=== PATIENT | female | born 1985 | race Caucasian/White ===

== ENCOUNTER 2018-08-28 08:00 | Inpatient (IN) | payer OTHER ==
[2018-09-28] MEDS ORDERED: ELECTROLYTE-148 SOLN 500 ML IV ONE (06:15)
[2018-09-28] MEDS ORDERED: CITRIC ACID/SODIUM CITRATE 30 ML UNIT-DOSE CUP PO ONE (06:15)
[2018-09-28] MEDS ORDERED: ELECTROLYTE-148 SOLN 1,000 ML IV SCH ×3 (06:30→07:30)
--- NOTE | 2018-09-28 07:05 | HP ---
Past Medical History - Admission Chief Complaint: Scheduled RLTCS History of Present Illness: 33yo @ 39wks here for scheduled RLTCS No VB/LOF. No ctx. 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: Alzheimer's, CVA, Dementia, Migraine, Multiple Sclerosis, Peripheral Neuropathy, Parkinson's, Seizure, Syncope, TIA, Vertigo, Other Cardiovascular: No: AFIB, Aneurysm, Aortic Insufficiency, Aortic Stenosis, CAD, CHF, Deep Vein Thrombosis, HTN, Hyperlipdemia, [place], Mitral Insufficiency, Mitral Stenosis, Murmur, Pulmonary Hypertension, Other Pulmonary: No: Asthma, Bronchitis, Cancer, COPD, O2 Dependent, Pneumonia, Previously Intubated, Pulmonary Embolus, Pulmonary Fibrosis, Sleep Apnea, Other Gastrointestinal: No: Ascites, Cancer, Constipation, Crohn's Disease, Diverticulitis, Diverticulosis, Esophageal Varices, Gastritis, GERD, GI Bleed, Hemorrhoids, Hiatal Hernia, Inflamatory Bowel Disease, Irritable Bowel Disease, Pancreatitis, Peptic Ulcer Disease, Ulcerative Colitis, Other Hepatobiliary: No: Cirrhosis, Cholelithiasis, Cholecystitis, Choledocholithiasis , Hepatitis A, Hepatitis B, Hepatitis C, Other Renal/: No: Renal Failure, Renal Inusuff, BPH, Cancer, Hematuria, Hemodialysis , Neurogenic Bladder, Renal Calculi, UTI, Other Reproductive: No: Ectopic , Endometriosis, Fibroids, PID, Polycystic Ovary Syndrome, Postmenopausal, Other ...EDC by Dates: 10/05/18 Heme/Onc: No: Anemia, B12 Deficiency, Bleeding Disorder, Cancer, Current Chemotherapy, Current Radiation Therapy, Hemochromatosis, Hypercoaguable State, Myeloproliferative Synd, Sickle Cell Disease, Sickle Cell Trait, Thrombocytopenia, Other Infectious Disease: No: AIDS, C-Diff, Herpes Zoster, HIV, MRSA, STD's, Tuberculosis, VREF, Other Psych: No: Addictions, Anxiety, Bipolar, Depression, Panic, Psychosis, Schizophrenia, Other - Past Surgical History Past Surgical History: Yes: Hx Myomectomy: No Hx Transabdominal Cerclage: No - Alcohol/Substance Use Hx Alcohol Use: No History of Substance Use: reports: None - Social History Usual Living Arrangement: Yes: With Spouse ADL: Independent History of Recent Travel: No Home Medications - Allergies Allergies/Adverse Reactions: Allergies Allergy/AdvReac Type Severity Reaction Status Date / Time No Known Allergies Allergy Verified 09/28/18 06:55 - Home Medications Home Medications: Ambulatory Orders Pnv 29-1 Tablet 1 tab PO DAILY 09/28/18 Physical Exam - Maternity Constitutional: Yes: Well Nourished, No Distress, Calm Eyes: Yes: WNL, Conjunctiva Clear, EOM Intact HENT: Yes: WNL, Atraumatic, Normocephalic Neck: Yes: WNL, Supple, Trachea Midline Cardiovascular: Yes: WNL, Regular Rate and Rhythm Breast(s): Yes: WNL - Abdominal Exam/OB Number of Fetuses: Single Presentation: Vertex Contractions: No Monitor Mode: External Category: I Assessment/Plan 33yo @ 39wks here for scheduled RLTCS Admit to L&D NPO, IVFs Ancef Longoria SCDs Risk of procedure reviewed, including bleeding/infection/injury (adnexa, bowel, bladder, vessels, nerves). All questions answered. Consent signed. Jack Robin MD
[2018-09-28 07:13] VITALS: BMI 27.5
[2018-09-28] MEDS ORDERED: OXYTOCIN 20 UNITS in 0.9% NS 20 UNIT/1,000 ML INFUS.BAG IV ONE (07:45)
[2018-09-28] MEDS ORDERED: morphine SULFATE/PF 0.5 MG/ML (2cc Syringe - QUVA) ONE (07:54)
[2018-09-28] MEDS ORDERED: ceFAZolin SODIUM 1 GM VIAL ONE (08:12)
[2018-09-28] MEDS ORDERED: PHENYLEPHRINE HCL 10 MG/1 ML SINGLE DOSE VIAL ONE (08:19)
[2018-09-28] MEDS: OXYTOCIN 20 UNITS in 0.9% NS 20 UNIT/1,000 ML INFUS.BAG IV SCH ×2 (08:24→19:28)
[2018-09-28] MEDS ORDERED: METHYLERGONOVINE MALEATE 0.2 MG/1 ML AMP IM PRN (09:00)
[2018-09-28] MEDS ORDERED: SENNOSIDES/DOCUSATE COMBO (SENNA PLUS) TABLET (UD) PO PRN (09:00)
[2018-09-28] MEDS ORDERED: IBUPROFEN 800 MG/8 ML IJ IVPB PRN (09:00)
--- NOTE | 2018-09-28 09:00 | OP ---
Operative Note - Note: Operative Date: 09/28/18 Pre-Operative Diagnosis: 39 week , 2 prior C/S, desires permanent sterilization Operation: Repeat , Bilateral Tubal Ligation Findings: VFI, MARIA L position, no nuchal, no meconium, Apgars 9/9. Weight pending. Normal tubes and ovaries bilaterally Surgeon: Salome Robin Bin Tripper Operator: Vikas Rodriguez Anesthesia: Spinal Specimens Removed: Bilateral Fallopian tube segments Estimated Blood Loss (mls): 600 Drains, Volume Out (mls): 200 (clear urine) Operative Report Dictated: Yes
[2018-09-28] MEDS ORDERED: ONDANSETRON 4 MG/2 ML VIAL IVPUSH PRN (09:09)
[2018-09-28] MEDS: FERROUS SO4 325 MG TABLET (FP) PO SCH ×2 (11:00→21:06)
[2018-09-28] MEDS: PRENATAL VITAMINS W/ FOLIC ACID TABLET (FP) PO SCH (11:00)
[2018-09-29] MEDS: ACETAMINOPHEN 325 MG TABLET (FP) PO PRN ×4 (00:36→20:43)
[2018-09-29] MEDS: IBUPROFEN 600 MG TABLET (FP) PO PRN ×4 (00:37→20:44)
[2018-09-29] MEDS: OXYTOCIN 20 UNITS in 0.9% NS 20 UNIT/1,000 ML INFUS.BAG IV SCH ×2 (02:16→11:43)
--- NOTE | 2018-09-29 07:31 | PN ---
Post Progress Note - Subjective Subjective: Patient is doing well, ambulating, tolerating PO, lochia decreased, bottle feeding Type of Delivery: Repeat C/S Vital Signs: Vital Signs Temperature 98.2 F 09/29/18 06:00 Pulse Rate 62 09/29/18 06:00 Respiratory Rate 18 09/29/18 06:00 Blood Pressure 97/52 L 09/29/18 06:00 O2 Sat by Pulse Oximetry (%) 100 09/28/18 09:50 Breast Exam: Yes: Other (deferred) Uterus: Yes: Fundus Firm Incision: Yes: Sutures intact Abdomen/GI: Yes: Abdomen soft Lochia, amount: Small Extremities: Yes: Calves non-tender Activity: Ambulating - Labs Labs: pending Problem List - Problems (1) Code(s): Z34.90 - ENCNTR FOR SUPRVSN OF NORMAL , UNSP, UNSP TRIMESTER Assessment/Plan POD # 1 in stable condition -Continue PP care
[2018-09-29 07:35] LABS: BASO % 0.1 % (0-2.0); EOS % 0.1 % (0-4.5); HEMOGLOBIN 9.9 GM/dL (10.7-15.3); LYMPH % 10.1 % (8-40); MCH 30.2 pg (25.7-33.7); MCHC 34.1 g/dl (32.0-36.0); MEAN CELL VOLUME 88.5 fl (80-96); MEAN PLT VOLUME 8.4 fl (7.5-11.1); MONO % 5.6 % (3.8-10.2); NEUT % 84.1 % (42.8-82.8); PLATELET COUNT 157 K/MM3 (134-434); RBC 3.28 M/mm3 (3.60-5.2); RDW 14.1 % (11.6-15.6); WHITE BLOOD COUNT 12.6 K/mm3 (4.0-10.0)
[2018-09-29] MEDS ORDERED: BISACODYL 10 MG SUPP.RECT RC PRN (09:00)
[2018-09-29] MEDS: SIMETHICONE 80 MG TAB.CHEW (FP) PO PRN ×2 (09:03→15:15)
[2018-09-29] MEDS: PRENATAL VITAMINS W/ FOLIC ACID TABLET (FP) PO SCH (10:00)
[2018-09-29] MEDS: FERROUS SO4 325 MG TABLET (FP) PO SCH ×2 (10:00→21:10)
--- NOTE | 2018-09-29 11:37 | PN ---
Progress Note (short form) - Note Progress Note: Anesthesia postop note 33 y/o F s/p spinal anesthesia/duramorph for section POD#1, vss, aaox3, pain well controlled, sensory motor intact distally No anesthesia complications.
[2018-09-30] MEDS: IBUPROFEN 600 MG TABLET (FP) PO PRN ×3 (07:26→22:30)
[2018-09-30] MEDS: SIMETHICONE 80 MG TAB.CHEW (FP) PO PRN ×2 (07:26→14:16)
[2018-09-30] MEDS: ACETAMINOPHEN 325 MG TABLET (FP) PO PRN ×3 (07:26→22:31)
--- NOTE | 2018-09-30 07:47 | PN ---
Post Progress Note - Subjective Subjective: c/o pain scale5/10 passing flatus bm done voiding without difficulty Post Day: 2 Type of Delivery: Repeat C/S Vital Signs: Vital Signs Temperature 98.7 F 09/29/18 21:39 Pulse Rate 67 09/29/18 21:39 Respiratory Rate 18 09/29/18 21:39 Blood Pressure 108/61 09/29/18 21:39 O2 Sat by Pulse Oximetry (%) 100 09/28/18 09:50 Breast Exam: Yes: Soft, Other (BF & bottle F). No: Engorged Uterus: Yes: Fundus Firm, Fundus below umbilicus, Non-tender Incision: Yes: Sutures intact (sterstrips in situ ). No: Redness, Oozing Abdomen/GI: Yes: Abdomen soft, Passing flatus, Tolerating PO (diet). No: Abdominal Distention, Tender Lochia: Yes: Rubra Lochia, amount: Moderate Extremities: Yes: Calves non-tender Perineum: Yes: Intact Activity: Ambulating - Labs Labs: CBC WBC 12.6 K/mm3 (4.0-10.0) H 09/29/18 07:19 RBC 3.28 M/mm3 (3.60-5.2) L 09/29/18 07:19 Hgb 9.9 GM/dL (10.7-15.3) L 09/29/18 07:19 Hct 29.0 % (32.4-45.2) L 09/29/18 07:19 MCV 88.5 fl (80-96) 09/29/18 07:19 MCH 30.2 pg (25.7-33.7) 09/29/18 07:19 MCHC 34.1 g/dl (32.0-36.0) 09/29/18 07:19 RDW 14.1 % (11.6-15.6) 09/29/18 07:19 Plt Count 157 K/MM3 (134-434) 09/29/18 07:19 MPV 8.4 fl (7.5-11.1) 09/29/18 07:19 Absolute Neuts (auto) 10.6 K/mm3 (1.5-8.0) H 09/29/18 07:19 Neutrophils % 84.1 % (42.8-82.8) H 09/29/18 07:19 Lymphocytes % 10.1 % (8-40) D 09/29/18 07:19 Monocytes % 5.6 % (3.8-10.2) 09/29/18 07:19 Eosinophils % 0.1 % (0-4.5) D 09/29/18 07:19 Basophils % 0.1 % (0-2.0) 09/29/18 07:19 Nucleated RBC % 0 % (0-0) 09/29/18 07:19 Problem List - Problems (1) examination following delivery Code(s): Z39.2 - ENCOUNTER FOR ROUTINE FOLLOW-UP Assessment/Plan s/p rc/s btl day #[address] ambulation, po fluids, deep breathing pt requests for discharge tomorrow
[2018-09-30] MEDS: FERROUS SO4 325 MG TABLET (FP) PO SCH ×2 (09:16→22:20)
[2018-09-30] MEDS: PRENATAL VITAMINS W/ FOLIC ACID TABLET (FP) PO SCH (09:16)
--- NOTE | 2018-09-30 18:13 | OP ---
DATE OF OPERATION: 09/28/2018 PREOPERATIVE DIAGNOSIS: A 39-week , 2 prior sections, desires permanent sterilization. POSTOPERATIVE DIAGNOSIS: A 39-week , 2 prior sections, desires permanent sterilization. PROCEDURE: Repeat section, bilateral tubal ligation. FINDINGS: Viable female infant, MARIA L position, no nuchal, no meconium. Apgars 9 and 9. Weight pending at time of delivery. Normal tubes and ovaries bilaterally. SURGEON: Salome Robin M.D. NICKEL OPERATOR: Tyrese Castillo ANESTHESIA: Spinal INTRAVENOUS FLUIDS: Per anesthesia record ESTIMATED BLOOD LOSS: 600 URINE OUTPUT: 200 clear urine at the end of the procedure DESCRIPTION OF PROCEDURE: After appropriate consents were signed, patient was taken to the operating room. Spinal anesthesia was administered. She was placed in the supine position. The abdomen was prepped and draped in the normal sterile fashion. A sterile Longoria catheter had been inserted prior to entry into the operating room. Timeout was performed confirming correct patient and procedure. A Pfannenstiel skin incision was made through the prior incision and carried through to the underlying layers until the fascia was nicked in the midline. Fascia was then extended laterally with the Adan scissors. The inferior aspect of the fascia was grasped with the Timo clamps, tented upwards, and the rectus muscles dissected off bluntly and with the Adan scissors. Attention was then paid to the superior aspect which was taken down in a similar fashion. The rectus muscles were then bluntly in the midline. The peritoneum was entered sharply. Bladder blade was inserted. Patient's lower uterine segment was noted to have roughly 3-4 cm uterine window. Lower uterine segment was incised in a low transverse fashion with a scalpel. Clear amniotic fluid was noted. The head was delivered without difficulty after the remaining shoulders and body. The cord was clamped and cut, the was handed off to the pediatric staff. The placenta was removed manually. The uterus was cleared all clot and debris. The uterus was exteriorized and closed in a single vertically imbricating layer with a 1-0 Vicryl with good hemostasis. Attention was then paid to the tubal ligation. A Rosendo was used to grasp the isthmus portion of the fallopian tube. The tube was then suture ligated with a 0 plain in the modified D[place]den fashion. Tubal stump was cut with the Metzenbaum scissors. Tubal stump sites were then cauterized with the Bovie, and hemostasis noted. Attention was then paid to the contralateral fallopian tube which was taken down in a similar fashion. The stumps were reexamined, and the first stump on the patient's right side was noted to be bleeding, and this had to be reinforced with a 0 plain suture with good hemostasis. Hysterotomy reexamined and noted to be hemostatic. The uterus was then returned to the abdominal cavity. Hysterotomy was noted to still be hemostatic. The tubal sites were noted to be hemostatic. The muscles were then closed with a 2-0 chromic. The fascia was closed with 0 Vicryl. Skin was closed with a 3-0 Vicryl. Sponge, lap, needle count was correct x3. Patient did receive 2 g of Ancef at the start of the procedure. She was taken from the operating room to the recovery area in stable condition. MD JOY RANKIN/[id number]
--- NOTE | 2018-10-01 06:31 | DS ---
Physical Examination Vital Signs: Vital Signs Temperature 98.2 F 09/30/18 22:00 Pulse Rate 79 09/30/18 22:00 Respiratory Rate 18 09/30/18 22:00 Blood Pressure 109/77 09/30/18 22:00 O2 Sat by Pulse Oximetry (%) 100 09/28/18 09:50 Constitutional: Yes: Well Nourished, No Distress, Calm Eyes: Yes: WNL, Conjunctiva Clear, EOM Intact HENT: Yes: WNL, Atraumatic, Normocephalic Neck: Yes: WNL, Supple, Trachea Midline Cardiovascular: Yes: WNL, Regular Rate and Rhythm Respiratory: Yes: WNL, Regular, CTA Bilaterally Gastrointestinal: Yes: WNL, Normal Bowel Sounds Musculoskeletal: Yes: WNL Extremities: Yes: WNL Edema: No Integumentary: Yes: WNL Neurological: Yes: WNL, Alert, Oriented ...Motor Strength: WNL Psychiatric: Yes: WNL Labs: CBC, BMP 09/29/18 07:19 Discharge Summary Reason For Visit: LABOR ADMIT Current Active Problems examination following delivery (Acute) (Acute) Procedures: Principal: RLTCS, BTL Hospital Course: Patient presented for her scheduled RTLCS and BTL She had an uncomplicated RTLCS and BTL She met all postoperative milestones She was discharged home on POD#3 M. MD Sharda Condition: Stable - Instructions Diet, Activity, Other Instructions: Regular Diet Follow up in 4-6 weeks for your visit Referrals: Salome Robin MD [Staff Physician] - Disposition: HOME - Home Medications Comprehensive Discharge Medication List: Ambulatory Orders Pnv 29-1 Tablet 1 tab PO DAILY 09/28/18 Ibuprofen [Motrin -] 600 mg PO QID PRN #28 tablet 09/30/18 Oxycodone HCl/Acetaminophen [Percocet 5-325 mg Tablet -] 1 - 2 tab PO Q6H PRN # 20 tab MDD 4 09/30/18
[2018-10-01 08:10] LABS: BASO % 0.1 % (0-2.0); EOS % 1.7 % (0-4.5); HEMATOCRIT 30.6 % (32.4-45.2); HEMOGLOBIN 10.5 GM/dL (10.7-15.3); LYMPH % 10.9 % (8-40); MCH 30.5 pg (25.7-33.7); MCHC 34.3 g/dl (32.0-36.0); MEAN CELL VOLUME 88.8 fl (80-96); MONO % 4.4 % (3.8-10.2); NEUT % 82.9 % (42.8-82.8); PLATELET COUNT 204 K/MM3 (134-434); RBC 3.44 M/mm3 (3.60-5.2); WHITE BLOOD COUNT 8.2 K/mm3 (4.0-10.0)
[2018-10-01 08:39] VITALS: BP 117/73; PULSE 74; TEMP 98.5
[2018-10-01] MEDS: PRENATAL VITAMINS W/ FOLIC ACID TABLET (FP) PO SCH (09:12)
[2018-10-01] MEDS: FERROUS SO4 325 MG TABLET (FP) PO SCH (09:13)
--- NOTE | 2018-10-05 13:39 | PATH ---
Surgical Pathology Report Patient Name: QUE DELGADO [facility]. Rec. #: [id number] /Age/Gender: 1985 (Age: 33) / F Account: [id number] Location: [facility] [employer] Taken: 09/28/2018 Received: 09/29/2018 Reported: 10/02/2018 Physicians: Salome Robin Specimen(s) Received A: PLACENTA B: RIGHT FALLOPIAN TUBE C: LEFT FALLOPIAN TUBE Clinical History , term , previous , 2013 Final Diagnosis A. PLACENTA, SECTION: 520 G THIRD TRIMESTER PLACENTA WITH TRIVASCULAR UMBILICAL CORD AND UNREMARKABLE PLACENTAL MEMBRANES. B. FALLOPIAN TUBE, RIGHT, PARTIAL EXCISION: FULL LUMINAL PORTION OF UNREMARKABLE FALLOPIAN TUBE. C. FALLOPIAN TUBE, LEFT, PARTIAL EXCISION: FULL LUMINAL PORTION OF UNREMARKABLE FALLOPIAN TUBE. Electronically Signed Anamaria Finn M.D. Gross Description A. The specimen is received fresh labeled placenta and is a 520 gram, 18.5 x 15.5 x 3.4 cm. placenta with attached membranes and umbilical cord. The attached membranes are balbuena, translucent with focal opacities and insert marginally. The umbilical cord measures 30 cm. in length and averages 1.3 cm. in diameter. The cord inserts eccentrically, 2.5 cm. to the nearest margin. No true knots or strictures are identified. Cut surface of the umbilical cord reveals 3 vessels. The surface is dangelo-blue with minimal fibrin deposition and appropriate caliber vessels. The maternal surface is red-brown with focal defects. Sectioning reveals red-brown, spongy parenchyma. No lesions are identified. Branding Machine Operator sections are submitted in three cassettes as follows: 1- membrane rolls and umbilical cord; 2-3- full thickness sections of placenta. B. Received in formalin labeled "right portion of fallopian tube," is a 0.9 cm in length portion of fallopian tube. No fimbria are present. The outer surface is balbuena and smooth. Sectioning reveals an unremarkable lumen. Branding Machine Operator sections are submitted in one cassette. C. Received in formalin labeled "portion of and tube left," is a 1.1 cm in length portion of fallopian tube. No fimbria are present. The outer surface is balbuena-obrien and smooth. Sectioning reveals an unremarkable lumen. Branding Machine Operator sections are submitted in one cassette. /10/01/2018 saudi10/01/2018
== END 2018-10-01 13:10 | disposition home or self-care (01) | DRG 540 ==
LOC: JLDR 09-28 06:05 → J3W 09-28 10:40
PROVIDERS: ADMIT Obstetrics & Gynecology; ATTEND Obstetrics & Gynecology
PROC: 10D00Z1 Extraction of Products of Conception, Low, Open Approach (ICD-10-PCS; principal; 2018-09-28)
PROC: 0UL70ZZ Occlusion of Bilateral Fallopian Tubes, Open Approach (ICD-10-PCS; 2018-09-28)
DX: O34.219 Maternal care for unspecified type scar from previous cesarean delivery (principal); Z3A.39 39 weeks gestation of pregnancy; Z37.0 Single live birth; Z30.2 Encounter for sterilization
CPT/HCPCS: 36415; 85025; 88302-TC; 88307-TC

== ENCOUNTER 2024-03-06 22:44 | Emergency (ER) | payer OTHER ==
[2024-03-06 23:08] VITALS: BP 124/79; PULSE 78; RESP 19; TEMP 98.8; BMI 24.7
[2024-03-07] MEDS ORDERED: FAMOTIDINE 20 MG TABLET ONE (00:18)
[2024-03-07] MEDS ORDERED: diphenhydrAMINE HCL 25 MG CAPSULE (FP) PO ONE (00:18)
[2024-03-07] MEDS ORDERED: DEXAMETHASONE 4 MG TABLET (FP) ONE (00:19)
[2024-03-07] MEDS: diphenhydrAMINE HCL 50 MG CAPSULE PO ONE (00:20)
[2024-03-07] MEDS: FAMOTIDINE 20 MG TABLET PO ONE (00:20)
[2024-03-07] MEDS: DEXAMETHASONE 4 MG TABLET (FP) PO ONE (00:20)
== END 2024-03-07 01:59 | disposition home or self-care (01) ==
LOC: JER 22:44
DX: T78.40XA Allergy, unspecified, initial encounter (principal)
CPT/HCPCS: 99283-25